=== PATIENT | female | born 1950 | race Caucasian/White ===

== ENCOUNTER 2019-03-05 17:06 | Inpatient (IN) | payer MEDICARE ==
--- NOTE | ~2019-03-05 | HEMODYNAMI ---
PATIENT:FRANKLIN OROURKE MEDICAL RECORD: [id number] : 54 LOCATION:[address] ADMISSION DATE: 03/05/19 Generatedon:03/06/201912:05 Patient name: FRANKLIN OROURKE Patient #: [id number] SSN: : 1950 Date of study: 03/06/2019 Page: Of Hemodynamic Procedure Report Patient Data Patient Demographics Procedure consent was obtained First Name: FRANKLIN Gender: Female Last Name: HAVEN : 1950 Patient #: [id number] Age: 68 year(s) Race: Unknown Additional ID: [id number] Contact details Address: [facility] [place] State: [place] City: [place] Zip code: [address] Past Medical History Allergies: No known allergies Admission Admission Data Admission Date: 03/05/2019 Admission Time: 17:06 Room #: 2103 Height (in.): 60 BSA: 1.91 (m2) Height (cm.): 152.4 BMI: 41.4 (kg/m2) Weight (lbs.): 212 Weight (kg.): 96.16 Procedure Procedure Types Cath Procedure Peripheral Cath Diagnostic Procedure Senior Editor Peripheral Procedures Fistula Fistulagram Angio AV Procedure Description Procedure Date Procedure Date: 03/06/2019 Procedure Start Time: 10:26 Procedure Staff Name Function Anival Smith MD Performing Physician Abby Tran RT Cultural Anthropology Professor Alba Lim RN Nurse Will Mojica RT Scrub Dillan Melton RT Scrub Procedure Data Cath Procedure Fluoroscopy Diagnostic fluoroscopy Total fluoroscopy Time: time: 11.4 min 11.4 min Diagnostic fluoroscopy Total fluoroscopy dose: 286 dose: 286 mGy mGy Contrast Material Contrast Material Type Amount (ml) Isovue 300 120 Procedure Medications Medication Administration Route Dosage Versed I.V. 1 mg Fentanyl I.V. 50 mcg Heparin Flush Bag added to field 3 (1000units/500ml NS) Lidocaine 1% added to field 20 Heparin Bolus I.V. 5000 units Fentanyl I.V. 25 mcg Versed I.V. 0.5 mg Versed I.V. 0.5 mg Fentanyl I.V. 25 mcg Hemodynamics Rest BSA: 1.91 (m2) O2 Consumption: Estimated: 173.71 (ml/min) O2 Consumption indexed : Estimated:90.95 (ml/min/m) Heart Rate: 64 (bpm) Snapshots Pre Cath Intra NCS Post Cath Vital Signs Time Heart Resp SPO2 etCO2 NIBP (mmHg) Rhythm Pain Sedation Rate (ipm) (%) (mmHg) Status Level (bpm) 10:11:47 66 12 100 26.9 141/50(87) NSR 0 (11) 10(A) , No pain 10:16:01 65 11 94 23.2 150/77(97) NSR 0 (11) 10(A) , No pain 10:20:25 65 19 98 31.4 142/51(78) NSR 0 (11) 10(A) , No pain 10:24:48 66 20 29.2 133/47(101) NSR 0 (11) 10(A) , No pain 10:29:08 64 22 90 26.9 143/42(85) NSR 0 (11) 9(A) , No pain 10:33:32 67 18 99 28.4 124/41(92) NSR 0 (11) 9(A) , No pain 10:37:50 66 15 98 31.4 128/42(80) NSR 0 (11) 9(A) , No pain 10:42:08 70 15 99 30.7 115/44(82) NSR 0 (11) 9(A) , No pain 10:46:22 70 17 91 29.2 113/44(77) NSR 0 (11) 9(A) , No pain 10:50:30 69 17 99 29.9 114/38(69) NSR 0 (11) 9(A) , No pain 10:54:44 70 17 98 27.7 112/38(67) NSR 0 (11) 8(A) , No pain 10:59:00 68 17 98 29.9 107/34(74) NSR 0 (11) 8(A) , No pain 11:03:12 66 16 95 30.7 112/30(69) NSR 0 (11) 8(A) , No pain 11:07:26 69 17 96 30.7 117/37(63) NSR 0 (11) 8(A) , No pain 11:11:40 68 20 84 29.9 111/40(68) NSR 0 (11) 8(A) , No pain 11:15:52 67 19 82 28.4 118/37(67) NSR 0 (11) 8(A) , No pain 11:20:08 61 20 100 25.4 110/40(64) NSR 0 (11) 8(A) , No pain 11:24:20 68 18 100 26.9 124/43(74) NSR 0 (11) 8(A) , No pain 11:28:38 67 17 100 25.4 120/38(85) NSR 0 (11) 8(A) , No pain 11:32:52 70 30 100 22.4 132/46(80) NSR 0 (11) 8(A) , No pain 11:37:12 67 17 100 26.2 128/44(79) NSR 0 (11) 8(A) , No pain 11:41:32 68 27 100 20.9 128/42(87) NSR 0 (11) 8(A) , No pain 11:45:52 68 25 100 26.2 132/39(70) NSR 0 (11) 8(A) , No pain 11:50:08 67 18 100 26.2 141/56(93) NSR 0 (11) 8(A) , No pain 11:54:29 68 18 100 25.4 130/56(87) NSR 0 (11) 8(A) , No pain 11:58:47 68 16 100 27.7 143/49(86) NSR 0 (11) 8(A) , No pain 12:03:09 69 18 100 24.7 143/49(97) NSR 0 (11) 8(A) , No pain Medications Time Medication Route Dose Verified Delivered Reason Notes Effectiveness by by 10:26:49 Versed I.V. 1 mg for sedation 10:27:07 Fentanyl I.V. 50 for sedation mcg 10:27:55 Heparin Flush added 3 Anival Florian used for Bag to Sarah Smith MD procedure (1000units/500ml field CORNELL NS) 10:28:26 Lidocaine 1% added 20ml Anival Florian for local to vial Sarah Smith MD anesthetic field CORNELL 10:50:51 Heparin Bolus I.V. 5000 Alba Florian for units Raphael Smith MD anticoagulation RN 10:51:15 Fentanyl I.V. 25 Alba Florian for sedation mcg Raphael Smith MD RN 10:51:34 Versed I.V. 0.5 Alba Florian for sedation mg Raphael Smith MD RN 11:13:04 Versed I.V. 0.5 Alba Florian for sedation mg Raphael Smith MD RN 11:13:18 Fentanyl I.V. 25 Alba Florian for sedation mcg Raphael Smith MD technology education instructor Log Time Note 9:41:31 Patient Height : 60 inches 9:41:37 Patient Weight : 212 lbs 9:42:15 Use device set IR Diagnostic 9:54:40 DOC .035 wire (O26476) opened to sterile field. 9:54:41 Micropuncture VSI 4FR kit opened to sterile field. 9:54:42 St Reagan 6FR 5cm sheath opened to sterile field. 9:54:43 St Reagan 6FR 5cm sheath opened to sterile field. 9:54:44 Tegaderm 4 x 4 (1626W) opened to sterile field. 9:54:45 Sterile Angiographic Pack opened to sterile field. 9:54:47 Bag Decanter (2002S) opened to sterile field. 9:55:19 - 9:55:22 Time tracking: Regular hours (M-F 7:00 - 5:00) 9:56:00 Plan of Care:Hemodynamics will remain stable., Cardiac rhythm will remain stable., Comfort level will be maintained., Respiratory function will remain adequate., Patient/ family verbilizes understanding of procedure., Procedure tolerated without complication., Recovers from procedure without complications.. 9:56:07 Patient received from [employer] II to IR Alert and oriented. Tansferred to table in Supine position. 9:56:11 Signed procedure consent form obtained from patient. 9:56:18 H&P Date Dictated: 03/06/2019 Within 30 days and on chart.. 9:56:21 Pre-procedure instructions explained to patient. 9:56:23 Pre-op teaching completed and patient verbalized understanding. 9:56:26 Family unavailable. 9:56:30 Patient NPO since Midnight. 9:56:36 Patient allergic to No known allergies 9:56:42 Is the patient allergic to Iodine/contrast media? No. 9:59:59 Patient diabetic? No. 10:00:03 - 10:00:04 ----Pre-sedation anethsthesia assessment.---- 10:00:08 Previous problem with sedation/anesthesia? No ? 10:00:11 Snore? Yes 10:00:13 Sleep apnea? No 10:00:15 Deviated septum? No 10:00:18 Opens mouth fully? Yes 10:00:21 Sticks out tongue? Yes 10:00:25 Airway obstruction? No ? 10:00:31 Dentures? No ? 10:00:33 - 10:01:33 IV patent on arrival in right forearm with D5/.45%NaCl at [facility]. 10:01:52 Left Arm area was prepped with chlora-prep and draped in sterile fashio n 10:01:53 - 10:10:33 ECG and BP/O2 sat monitors applied to patient. 10:10:36 Vital chart was started 10:10:37 Baseline sample Acquired. 10::40 Full Disclosure recording started 10:10:43 - 10:17:53 GLIDE CATHETER 5FR ANGLED 65cm (CG507) opened to sterile field. 10:25:05 Physician arrived 10:25:05 --------ALL STOP TIME OUT------ 10:25:06 Final Timeout: patient, procedure, and site verified with staff and physician. All members of the team are in agreement. 10:26:04 Procedure started. 10:26:11 Local anesthetic to left arm with Lidocaine 1% by Anival Smith MD.INITIAL ACCESS ONLY 10:26:49 Versed 1 mg I.V. was administered by ; for sedation; 10:27:07 Fentanyl 50 mcg I.V. was administered by ; for sedation; 10:27:55 Heparin Flush Bag (1000units/500ml NS) 3 added to field was administere d by Anival Smith MD; used for procedure; 10:28:26 Lidocaine 1% 20ml vial added to field was administered by Anival Smith MD; for local anesthetic; 10:40:21 GLIDE WIRE ANGLE 180cm (VR2804) opened to sterile field. 10:40:28 TORQUE DEVICE PLASTIC .038 ( TD01) opened to sterile field. 10:50:51 Heparin Bolus 5000 units I.V. was administered by Anival Smith MD; for anticoagulation; 10:51:15 Fentanyl 25 mcg I.V. was administered by Anival Smith MD; for sedation; 10:51:34 Versed 0.5 mg I.V. was administered by Anival Smith MD; for sedation; 10:53:35 INFLATOR BasixTOUCH (GD4172) opened to sterile field. 10:54:25 Arrow 6Fr TREROTOLA thrombectomy opened to sterile field. 10:55:18 Inflate balloon Inflation number: 1 A Evercross 6 x 6 x 135 Balloon ([id number]) was prepped and advanced across the Undefined1, then inflated . 11:11:10 Ladonna 5Fr OTW embolectomy catheter opened to sterile field. 11:13:04 Versed 0.5 mg I.V. was administered by Anival Smith MD; for sedation; 11:13:18 Fentanyl 25 mcg I.V. was administered by Anival Smith MD; for sedation; 11:32:23 RIZZO 260 wire ([id number]) opened to sterile field. 11:32:36 Inflate balloon Inflation number: 2 A Evercross 4 x 4 x 135 Balloon ([id number]) was prepped and advanced across the Undefined1, then inflated. 11:38:05 RIZZO 260 wire ([id number]) opened to sterile field. 11:46:22 SUTURE ETHILON 2-0 BLK MONO FS opened to sterile field. 11:46:23 SUTURE ETHILON 2-0 BLK MONO FS opened to sterile field. 12:01:08 Procedure ended.(Physican Out) 12:01:39 Fluoroscopy time 11.40 minutes. 12:01:44 Fluoroscopy dose: 286 mGy 12:01:44 Flurop Dose total: 286 12:03:16 Contrast amount:Isovue 300 120ml. 12:04:23 Report given to Med II. 12:05:25 Vital chart was stopped Intervention Summary Intervention Notes Time ActionType Lesion and Equipment Used Action# Pressure Duration Attributes 10:55:18 Inflate Undefined1 Evercross 6 x 6 1 0 00:00 balloon x 135 Balloon ([id number]) 11:32:36 Inflate Undefined1 Evercross 4 x 4 2 0 00:00 balloon x 135 Balloon ([id number]) Device Usage Item Name Manufacture Quantity Catalog Number Hospital Part Current M inimal Lot# / Charge Number Stock Stock Serial# Code DOC .035 wire Cook Medical 1 [id number] [id number] [id number] 5 ([id number]) Micropuncture VSI VASCULAR 1 7266V 978367 831858 [address] kit [address] Reagan 6FR 5[address] St Reagan 2 163396 123939 742658 5 [id number] sheath [id number] Tegaderm 4 x 4 3M 1 1626W 089376 367729 358402 5 (1626W) Sterile Cardinal 1 [id number] 667383 537015 5 Angiographic Health Pack Bag Decanter Microtek 1 2001S 419941 59552 533678 5 (2001S) Medical Inc. GLIDE CATHETER Terumo 1 CG507 549528 229077 5 5FR ANGLED 65cm (CG507) GLIDE WIRE Terumo 1 SY7280 530964 629341 780686 5 ANGLE 180cm (XF5651) TORQUE DEVICE Hasty 1 TD01 719237 357638 919186 5 PLASTIC .038 ( Scientific TD01) INFLATOR Merit 1 PP6748 789050 346572 228112 5 ENDOTRONIX (DM5968) Arrow 6Fr Teleflex 1 [id number]-[id number] 354041 961474 174312 5 TREROTOLA thrombectomy Evercross 6 x 6 Medtronic 1 [id number] 684916 753238 5 [id number] x 135 Balloon ([id number]) Ladonna 5Fr OTW Jones 1 [id number] 000205 566335 431177 5 embolectomy Lifesciences catheter RIZZO 260 wire [employer] 1 G15267 474866 16825 405153 5 (Q05089) Evercross 4 x 4 Medtronic 1 [id number] 747402 508081 583832 5 [id number] x 135 Balloon ([id number]) SUTURE ETHILON Ethicon 2 664H 011141 624923 5 2-0 BLK MONO FS Signature Audit [place] Stage Time Signature Unsigned Intra-Procedure 03/06/2019 Abby Tran 12:05:20 PM RT(R) [place] [address] [facility] [place] [address]
[~2019-03-05 17:06] MED LIST: CARAFATE1 G PO; FOSINOPRIL SODI40 MG PO; GLIMEPIRIDE1 MG PO; LASIX20 MG PO; LEVOTHROID150 MCG PO; NEXIUM40 MG PO; NORCO 5/325 TAB1 TA1 PO; PLAVIX75 MG PO; TENORMIN50 MG PO; TRICOR145 MG PO; VITAMIN D250000 UNIT PO
[2019-03-05 18:50] LABS: BASOPHILS 0.2 % (0-2); EOSINOPHILS 0.5 % (0-7); HEMOGLOBIN 8.4 g/dL (12-16); IMMATURE GRANULOCYTES 0.3 % (0-5); LYMPHOCYTES 11.7 % (15-50); MCH 34.4 pg (26.0-34.0); MCHC 32.3 g/dL (31.0-37.0); MCV 106.6 fL (80.0-100.0); MEAN PLATELET VOLUME 9.4 fL (7.4-10.4); MONOCYTES 6.8 % (2-11); NEUTROPHILS 80.5 % (40-80); PLATELET COUNT 77 10x3/uL (130-400); RBC 2.44 10x6/uL (4.00-5.40); RDW 14.1 % (11.5-14.5); WBC 6.6 10x3/uL (4.8-10.8)
[2019-03-05 18:56] LABS: ALBUMIN 2.2 g/dL (3.4-5.0); ANION GAP 18.2 mmol/L (8-16); BILIRUBIN - TOTAL 0.7 mg/dL (0.2-1.3); CALCIUM 7.6 mg/dL (8.5-10.1); CARBON DIOXIDE 19.8 mmol/L (21.0-32.0); CREATININE - SERUM 11.5 mg/dL (0.6-1.3); PROTEIN - SERUM 5.6 g/dL (6.4-8.2)
[2019-03-05 19:15] LABS: PLATELET ESTIMATE DECREASED
[2019-03-05 19:30] VITALS: BP 113/37; BMI 41.1
[2019-03-05] MEDS ORDERED: COREG25 MG PO (20:00)
[2019-03-05] MEDS ORDERED: FOSINOPRIL SODI10 MG PO (20:02)
[2019-03-05] MEDS ORDERED: ZOLOFT50 MG PO (20:02)
[2019-03-05] MEDS ORDERED: PRAVACHOL40 MG PO (20:02)
[2019-03-05 20:48] VITALS: BP 101/43
[2019-03-06 00:47] VITALS: BP 113/42
[2019-03-06 04:00] VITALS: BP 123/39
[2019-03-06 06:21] LABS: ALBUMIN 2.1 g/dL (3.4-5.0); ANION GAP 16.9 mmol/L (8-16); BILIRUBIN - TOTAL 0.55 mg/dL (0.2-1.3); CALCIUM 7.7 mg/dL (8.5-10.1); CREATININE - SERUM 12.1 mg/dL (0.6-1.3); MAGNESIUM - SERUM 1.7 mg/dL (1.8-2.4); PHOSPHOROUS 7.4 mg/dL (2.5-4.9); POTASSIUM - SERUM 4.9 mmol/L (3.5-5.1); PROTEIN - SERUM 5.3 g/dL (6.4-8.2)
[2019-03-06 09:57] LABS: INR 1.42 (0.85-1.17); PROTIME 16.8 SECONDS (11.6-15.0)
[2019-03-06 12:33] VITALS: BMI 41.3
[2019-03-06 15:52] VITALS: BP 122/41
[2019-03-06 18:17] VITALS: BP 120/75
--- NOTE | 2019-03-07 08:25 | MORECARE ---
CASE MANAGEMENT DISCHARGE SUMMARY PATIENT: FRANKLIN OROURKE UNIT: [id number] ADM DATE: 03/05/19 AGE: 68 : 52 SEX: F ROOM/BED: D.2103 AUTHOR: SUSSY VERGARA PHYSICIAN: REFERRING PHYSICIAN: ADORE THORNE MD DATE OF SERVICE: 03/07/19 Discharge Plan Patient Name: FRANKLIN OROURKE Facility: [facility]:[place] : 1950 Planned Disposition: Home Anticipated Discharge Date: 03/06/19 Discharge Date: 03/06/2019 Expected LOS: 1 Initial Reviewer: [email or web address] Initial Review Date: 03/07/2019 Generated: 03/07/19 9:24 am Patient Name: FRANKLIN OROURKE Page [id number] at 0825 All edits/amendments must be made on the electronic document DICTATION DATE: 03/07/19823 OCC MED PHYSICIAN: DM 03/07/19823 RPT#: [id number] DC DATE:03/06/19 STATUS: DIS IN [facility] [address] [facility] [place] [address] END OF REPORT
== END 2019-03-06 22:39 | disposition home or self-care (01) | DRG 252 ==
LOC: D.M2 17:06
PROVIDERS: General Practice; ADMIT Internal Medicine Nephrology
PROC: 037Y3ZZ Dilation of Upper Artery, Percutaneous Approach (ICD-10-PCS; 2019-03-06)
PROC: 5A1D70Z Performance of Urinary Filtration, Intermittent, Less than 6 Hours Per Day (ICD-10-PCS; 2019-03-06)
PROC: 05CY3ZZ Extirpation of Matter from Upper Vein, Percutaneous Approach (ICD-10-PCS; principal; 2019-03-06 10:00)
DX: T82.868A Thrombosis due to vascular prosthetic devices, implants and grafts, initial encounter (principal); N18.6 End stage renal disease; J96.01 Acute respiratory failure with hypoxia; I12.0 Hypertensive chronic kidney disease with stage 5 chronic kidney disease or end stage renal disease; Y83.8 Other surgical procedures as the cause of abnormal reaction of the patient, or of later complication, without mention of misadventure at the time of the procedure; E11.22 Type 2 diabetes mellitus with diabetic chronic kidney disease; E11.65 Type 2 diabetes mellitus with hyperglycemia; Z99.2 Dependence on renal dialysis; D63.1 Anemia in chronic kidney disease; D69.6 Thrombocytopenia, unspecified; E20.9 Hypoparathyroidism, unspecified; J44.9 Chronic obstructive pulmonary disease, unspecified